=== PATIENT | female | born 1985 | race Caucasian/White ===

== ENCOUNTER 2021-03-07 09:23 | Emergency (ER) | payer OTHER, SELFPAY ==
--- NOTE | 2021-03-07 09:28 | ED.DENTAL ---
HPI - Dental/Oral General Chief complaint: Dental/Oral Stated complaint: infected tooth pain Time Seen by Provider: 03/07/21 09:28 Source: patient and RN notes reviewed History of Present Illness HPI Narrative: Patient is a 35-year-old female who presents the urgent care with complaints of upper right dental pain. Patient states that she has had it for years after cracking off the back of the tooth. Patient states that she was being seen at the dental school but they have been gone and will not return for another 3 weeks. Patient states she does have an appointment on March 20 to get the tooth pulled. Patient states that she has had some leaking fluid from the tooth that has a bad taste . Patient denies of any fevers, chills, nausea, vomiting. Patient states that she has been taking Aleve for the pain. No other acute complaints. No acute distress noted. Patient aware of the plan of care. Some parts of this dictation were generated by voice recognition software and may contain typographical and/or grammatical inaccuracies. Related Data Home Medications Medication Instructions Recorded Confirmed norgestimate-ethinyl estradiol 1 tablet PO DAILY 06/21/19 03/07/21 [Tri-Sprintec (28)] Allergies Allergy/AdvReac Type Severity Reaction Status Date / Time No Known Allergies Allergy Unverified 06/21/19 10:09 Review of Systems Review of Systems: Narrative: CONSTITUTIONAL: Denies fever, chills, or sweats. EYES: Denies visual changes, redness, or discharge. ENT: Denies rhinorrhea, congestion, sore throat, or otalgia. Reports of upper right dental pain CARDIOVASCULAR: Denies chest pain, palpitations, or edema. RESPIRATORY: Denies cough or dyspnea. GASTROINTESTINAL: Denies abdominal pain, nausea, vomiting, or diarrhea. GENITOURINARY: Denies dysuria or hematuria. SKIN: Denies rash or itching. MUSCULOSKELETAL: Denies back pain, joint pain, or myalgia. NEUROLOGIC: Denies headache, numbness, or weakness. All other systems reviewed are negative, except as documented in HPI. FORMERLY [facility], LATER [facility] Social History Social History Gender identity (if verbalized by the patient): Female Comments At the time of my signature, I reviewed and agree with the nursing past medical, surgical, social, and family history. There is no relevant family history pertinent to the patient complaint. Exam Narrative: Exam Narrative: GENERAL: This is a well-nourished, well-developed patient, in no apparent distress. HEAD: normocephalic, atraumatic. EYES: PERRL. Sclera clear/white. Vision is grossly intact. EARS: External ears normal, auditory canals clear and without drainage, TMs normal without perforation. Hearing grossly intact. NOSE: External nose normal with no obvious nasal discharge, nares without redness, no rhinorrhea. THROAT: Mucous membranes moist, posterior pharynx clear. DENTAL: Posterior cusp of tooth #2, upper right second molar, avulsed with the drainage. No surrounding erythema or edema NECK: Neck supple, non-tender without lymphadenopathy CARDIOVASCULAR: Regular rate and rhythm without murmurs, gallops, or rubs. RESPIRATORY: Clear to auscultation. Breath sounds equal bilaterally. No wheezes, rales, or rhonchi. SKIN: warm, intact with no suspicious lesions or rash, good texture and turgor. NEURO: awake, alert, and oriented to person, place and time. There were no obvious focal neurologic abnormalities. EXTREMITIES: No clubbing, cyanosis, or edema. Course Vital Signs Vital signs: Vital Signs Temperature 100.1 F H 03/07/21 09:38 Pulse Rate 81 03/07/21 09:38 Respiratory Rate 18 03/07/21 09:38 Blood Pressure 119/71 03/07/21 09:38 Pulse Oximetry 99 03/07/21 09:38 Temperature 100.1 F H 03/07/21 09:38 Pulse Rate 81 03/07/21 09:38 Respiratory Rate 18 03/07/21 09:38 Blood Pressure 119/71 03/07/21 09:38 Pulse Oximetry 99 03/07/21 09:38 Reviewed MDM - Dental/Ora
[2021-03-07 09:38] VITALS: BP 119/71; PULSE 81; RESP 18; TEMP 37.8; O2SAT 99
== END 2021-03-07 09:48 | disposition home or self-care (01) ==
PROVIDERS: Emergency Provider Nurse Practitioner Family; PCP Physician Assistant
DX: K02.9 Dental caries, unspecified (principal)
CPT/HCPCS: 99213; G0463

== ENCOUNTER 2022-04-24 08:59 | Emergency (ER) | payer OTHER, SELFPAY ==
[2022-04-24 09:04] VITALS: BP 111/69; PULSE 66; RESP 20; TEMP 36.9; O2SAT 99
--- NOTE | 2022-04-24 09:18 | ED.EYEPROB ---
HPI - Eye Problem General Chief complaint: Eye Problems Stated complaint: diann eye redness/pain/itchy Time Seen by Provider: 04/24/22 09:18 Source: patient and RN notes reviewed Mode of arrival: ambulatory Limitations: no limitations History of Present Illness HPI Narrative: 36-year-old female presented for 2 complaints. Endorses bilateral eye itching, burning, and drainage/crusting for the last 2 days and mild swelling this morning. Reports has been treated for pink eye. She does not wear contact lenses. Also reports large amounts of clear/yellow thin watery vaginal discharge for 1 week. Associated with vaginal itching and burning. Denies significant odor. She took OTC monistat-1 without significant change. LMP 2 weeks ago. Started new oral BCP. Also reports treatment for uti one month ago, stating she took abx for about 10 days then was told to increase the dose for an additional 10 days. Denies abdominal pain, dysuria, hematuria, flank pain, n/v/d/f/c. Related Data Home Medications Medication Instructions Recorded Confirmed norgestimate-ethinyl estradiol 1 tablet PO DAILY 06/21/19 04/24/22 0.18 mg/0.215mg/0.25mg-35 mcg(28)tablet (Tri-Sprintec (28)) Allergies Allergy/AdvReac Type Severity Reaction Status Date / Time No Known Allergies Allergy Unverified 04/24/22 09:24 Review of Systems Review of Systems: CONSTITUTIONAL: Denies body aches, fever, chills, or sweats. ENT: Reports eye itching and drainage CARDIOVASCULAR: Denies chest pain, palpitations, or edema. RESPIRATORY: Denies cough or dyspnea. GASTROINTESTINAL: Denies abdominal pain, nausea, vomiting, or diarrhea. GENITOURINARY: Reports vaginal discharge denies dysuria, frequency, urgency, hematuria, flank pain SKIN: Denies rash, itching, or wounds. MUSCULOSKELETAL: Denies back pain or myalgia. FORMERLY [facility] Social History Social History Gender identity (if verbalized by the patient): Female Comments At time of signature, I have reviewed and agree with nursing past medical, surgical, social and family history unless otherwise noted. Please see nursing chart for further information. There is no relevant family history pertinent to the presenting complaint Exam Narrative: GENERAL: Well-appearing and in no acute distress. EYES: EOMI. mild erythema to lower lids, no conjunctival injection mild yellow crusting ENT: Mucous membranes pink and moist. CHEST: No respiratory distress. Clear to auscultation. HEART: Regular rate and rhythm. ABDOMEN: Soft, nontender, nondistended, normal active bowel sounds. No CVA tenderness SKIN: Warm, dry, no rash. NEURO: Alert and oriented x3. Gait steady. Course Course Emergency Course: Patient is aware of diagnosis, understands and agrees to treatment plan. Anticipatory guidance given. Patient agrees to follow-up as directed and is aware of reasons to seek care at the emergency department. Portions of this record may have been created with voice recognition software Level of Care: Express Care Visit Vital Signs Vital signs: Vital Signs Temperature 98.4 F 04/24/22 09:04 Pulse Rate 66 04/24/22 09:04 Respiratory Rate 20 04/24/22 09:04 Blood Pressure 111/69 04/24/22 09:04 Pulse Oximetry 99 04/24/22 09:04 Oxygen Delivery Room Air 04/24/22 09:04 Temperature 98.4 F 04/24/22 09:04 Pulse Rate 66 04/24/22 09:04 Respiratory Rate 20 04/24/22 09:04 Blood Pressure 111/69 04/24/22 09:04 Pulse Oximetry 99 04/24/22 09:04 Oxygen Delivery Room Air 04/24/22 09:04 Reviewed MDM - Eye Problem MDM Narrative Medical decision making narrative: UA negative and preg neg, reviewed with pt. Declined pelvic exam. Will treat for bacterial conjunctivitis as well as BV based on symptoms and possible yeast infection given the recent abx use. Advised supportive measures and signs/symptoms to go to the ER. Pt is appropriate for outpt tr
== END 2022-04-24 10:02 | disposition home or self-care (01) ==
PROVIDERS: Emergency Provider Nurse Practitioner Family; PCP Physician Assistant
DX: H10.9 Unspecified conjunctivitis (principal); N76.0 Acute vaginitis
CPT/HCPCS: 81003; 81025; 99213; G0463

== ENCOUNTER 2022-05-25 14:32 | Emergency (ER) | payer OTHER, SELFPAY ==
[2022-05-25 14:36] VITALS: BP 129/72; PULSE 98; RESP 14; TEMP 37.3; O2SAT 98
--- NOTE | 2022-05-25 14:43 | ED.FEMALEGU ---
HPI - Female Genitourinary General Chief complaint: Urogenital-Female Stated complaint: Poss yeast infection Time Seen by Provider: 05/25/22 14:43 Source: patient and RN notes reviewed History of Present Illness HPI Narrative: Patient is a 36-year-old female who presents the urgent care with complaints of vaginal discharge. States that its yellow and odorous. Patient was treated here for BV and a yeast infection on April 24. Patient refused a pelvic exam at that time and has not followed up with her [employer]. Patient states that there is no chance for STI and has been with her only. Patient states that a couple weeks ago she did have intercourse with her and had not showered for a couple days. Patient denies of any urinary symptoms such as burning, frequency or urgency. No other acute complaints. No acute distress noted. Patient aware of the plan of care. Some parts of this dictation were generated by voice recognition software and may contain typographical and/or grammatical inaccuracies. Related Data Home Medications Medication Instructions Recorded Confirmed norgestimate-ethinyl estradiol 1 tablet PO DAILY 06/21/19 05/25/22 0.18 mg/0.215mg/0.25mg-35 mcg(28)tablet (Tri-Sprintec (28)) Allergies Allergy/AdvReac Type Severity Reaction Status Date / Time No Known Allergies Allergy Unverified 05/25/22 14:40 Review of Systems Review of Systems: CONSTITUTIONAL: Denies fever, chills, or sweats. EYES: Denies visual changes, redness, or discharge. ENT: Denies rhinorrhea, congestion, sore throat, or otalgia. CARDIOVASCULAR: Denies chest pain, palpitations, or edema. RESPIRATORY: Denies cough or dyspnea. GASTROINTESTINAL: Denies abdominal pain, nausea, vomiting, or diarrhea. GENITOURINARY: Reports of vaginal discharge and odor with itchy irritation SKIN: Denies rash or itching. MUSCULOSKELETAL: Denies back pain, joint pain, or myalgia. NEUROLOGIC: Denies headache, numbness, or weakness. All other systems reviewed are negative, except as documented in HPI. [facility] Social History Social History Gender identity (if verbalized by the patient): Female Comments At the time of my signature, I reviewed and agree with the nursing past medical, surgical, social, and family history. There is no relevant family history pertinent to the patient complaint. Exam Narrative: GENERAL: This is a well-nourished, well-developed patient, in no apparent distress. HEAD: normocephalic, atraumatic. EYES: PERRL. Sclera clear/white. Vision is grossly intact. EARS: External ears normal NOSE: External nose normal with no obvious nasal discharge, nares without redness, no rhinorrhea. THROAT: Mucous membranes moist NECK: Neck supple SKIN: warm, intact with no suspicious lesions or rash, good texture and turgor. NEURO: awake, alert, and oriented to person, place and time. There were no obvious focal neurologic abnormalities. EXTREMITIES: No clubbing, cyanosis, or edema. BACK: No flank tenderness. Course Course Level of Care: Express Care Visit Vital Signs Vital signs: Vital Signs Temperature 99.1 F 05/25/22 14:36 Pulse Rate 98 05/25/22 14:36 Respiratory Rate 14 05/25/22 14:36 Blood Pressure 129/72 05/25/22 14:36 Pulse Oximetry 98 05/25/22 14:36 Oxygen Delivery Room Air 05/25/22 14:36 Temperature 99.1 F 05/25/22 14:36 Pulse Rate 98 05/25/22 14:36 Respiratory Rate 14 05/25/22 14:36 Blood Pressure 129/72 05/25/22 14:36 Pulse Oximetry 98 05/25/22 14:36 Oxygen Delivery Room Air 05/25/22 14:36 Reviewed MDM - Female Genitourinary MDM Narrative Medical decision making narrative: Spoke to the patient regarding urine analysis. She is aware that urine does appear to have some slight bacteria as well as blood. We will treat for a possible urinary tract infection as well as a yeast infection pre and post antibiotics. We will
== END 2022-05-25 15:25 | disposition home or self-care (01) ==
PROVIDERS: Emergency Provider Nurse Practitioner Family; PCP Physician Assistant
DX: N39.0 Urinary tract infection, site not specified (principal)
CPT/HCPCS: 81003; 87070; 87086; 87491; 87591; 87661; 99214; G0463

== ENCOUNTER 2022-09-24 13:32 | Outpatient (CLI) | payer OTHER, SELFPAY ==
--- NOTE | 2022-09-24 13:49 | ECG_ITS ---
Measurements Intervals [place] Rate: 77 P: -34 FL: 151 QRS: 76 QRSD: 92 T: 59 QT: 400 QTc: 453 Interpretive Statements SINUS RHYTHM NO PREVIOUS ECG AVAILABLE FOR COMPARISON Electronically Signed On 09-24-2022 15:49:56 PATIENT ACCOUNT LIAISON by Ricardo Montgomery M.D.
== END 2022-09-24 13:33 | disposition home or self-care (01) ==
LOC: ANHLAB 13:35
PROVIDERS: PCP Physician Assistant; Visit Provider Anesthesiology
DX: Z72.0 Tobacco use (principal); Z01.818 Encounter for other preprocedural examination
CPT/HCPCS: 93005

== ENCOUNTER 2022-09-30 01:27 | Day surgery (SDC) | payer OTHER, SELFPAY ==
[2022-09-16 11:13] VITALS: BMI 21.6
--- NOTE | 2022-09-16 11:29 | PC.NURSE ---
Report to the Outpatient Waiting Room, entrance under the green pavilion located off [facility], at time 1130 on date 09/30/22. Planned Procedure Time: 1330. Time changes happen often and if your time is changed the preop area will call you the afternoon before. - You and your visitor will be asked to self-screen and do not enter if you have any COVID symptoms. - Only one visitor is requested with a max of two and NO children visitors are allowed at this time. - The patient visitor may be requested to leave or wait in car when not with patient due to distancing restrictions. - A mask is optional within the hospital at this time. Patients may have clear liquids (water, carbonated beverages, clear teas, apple juice) until 3 hours prior to surgery with a maximum of 20 ounces. 1030 - No food from midnight until time of surgery - Infants may have breast milk until 4 hours before surgery, formula 6 hours prior to surgery. - Children will be allowed to drink immediately following surgery. If applicable, please bring a bottle or sippy cup to assist with drinking. Juice, water, soda, and popsicles are readily available. For infants on formula, please bring formula the day of surgery. Pacifiers are allowed. Take the following medications with a SIP of water the morning of surgery: N/A DO NOT STOP ANY OF YOUR OTHER PRESCRIPTION MEDICATIONS PRIOR TO SURGERY ?EXCEPT THE FOLLOWING Medications to discontinue per physician N/A Date to take last dose N/A Please no make-up, nail samoan, hairspray, perfume, deodorant, or body powder the day of surgery. No jewelry (including any body piercings) or valuables the day of surgery, leave them at home. Please take a shower or bath the night before, or the morning of, surgery with an antibacterial soap. Wear comfortable, loose fitting clothing. Children are encouraged to wear pajamas. - Jewelry must be removed prior to entering the operating room. Rings and piercings that are not removed may be cut off. - The hospital will not accept responsibility for valuables. - Please leave all valuables, including medications, at home the day of surgery. If you are going home after surgery, a licensed local bulk driver must drive you home. - NO public transportation without another adult if you receive anesthesia. - We recommend that an adult stay with you for 24 hours following discharge. - We also recommend that you do not drive, make important decision, drink alcoholic beverages, or take any drugs that were not prescribed by your health care provider for at least 24 hours after your discharge time. For Pediatric surgeries, we recommend two adults accompany the child home. Follow any additional instructions given to you from your surgeon. If you or anyone in your household have experienced Covid symptoms in the past week, please notify your surgeon or the nurse liaison at the phone number below for possible testing. Telephone instructions given to Mayelin Del Angel and asked if any additional questions and then verbalized understanding. Patient advised to call surgeon office or pre surgery nurse liaison [phone] if any additional questions.
[2022-09-30] VITALS (7 sets, daily range): BP systolic 106–135; BP diastolic 56–90; PULSE 48–83; RESP 10–16; TEMP 36.2–37; O2SAT 100; BMI 21.5
[2022-09-30] MEDS: LACTATED RINGERS 1,000 ML 30 ML IV CONT (11:10)
[2022-09-30] MEDS: ACETAMINOPHEN 500 MG TABLET 1000 MG PO (11:22)
[2022-09-30] MEDS: KETOROLAC 15 MG/ML VIAL (*BKC) IV PUSH (11:22)
--- NOTE | 2022-09-30 11:51 | P.PNAN_ITS ---
Anes - Initial Pre Proc Eval Procedure: Operation Date: 09/30/22 12:30 Proposed Procedures p Laparoscopic Bilateral Salpingectomy - Melodie Guzman MD Date/Time: 09/30/22 11:51 Surgeon: Melodie Guzman MD Pre Op Diagnosis: sterilization Patient Data Age: 36 Gender: F Height: 1.65 m Weight: 59 kg Allergies Allergy/AdvReac Type Severity Reaction Status Date / Time No Known Allergies Allergy Verified 09/16/22 11:12 Patient hx anesthesia problems: none Family hx anesthesia problems: none Results Review: All pre-operative results and documents have been reviewed as part of the pre- operative evaluation. [facility] Surgical History Surgical History History of appendectomy Social History Social History Smoking packs per day: 1 Smoking cigarettes per day: 20.0 Years smoked: 20 Smoking pack-years: 20.00 Smoking status: Former smoker Tobacco type: cigarettes Living arrangements: with family Gender identity (if verbalized by the patient): Female Spiritual care concerns: No Anes - Eval Final PreProcedure Day of Procedure 09/30/22 11:51 Patient weight: normal Heart: regular rate and rhythm Lungs: clear to auscultation Airway: Mallampati scale class II Neurological: alert and oriented Last oral intake: >/= 8 hours ASA classification: II Emergent: no Anesthetic plan: proceed Anesthesia type and monitoring: general ETT and standard monitoring Results Review: All pre-operative results and documents have been reviewed as part of the pre- operative evaluation. Informed Consent: The patient's anesthetic plan and its attendant risks and benefits were discussed with the patient/family/POA. Questions were solicited and answers provided to the satisfaction of the patient/family/POA.
--- NOTE | 2022-09-30 12:06 | WPDHPUPDATE1 ---
History and Physical Update Update Date/Time: 09/30/22 12:06 History and Physical has been reviewed, including an updated exam of the patient. There are NO changes in the patient's condition. Risks, benefits, and alternatives have been discussed and questions answered. Patient agrees to proceed with procedure.
--- NOTE | 2022-09-30 13:00 | W.PM.PROC2 ---
Procedure Note - Detailed Date of Procedure 09/30/22 Pre-op Diagnosis sterilization Post-op Diagnosis Same Procedure Performed Laparoscopic bilateral salpingectomy Surgeon Melodie Guzman MD Anesthesia General Indications Unwanted fertility Findings Normal pelvic anatomy Description of Procedure The patient was taken the operating room. She was prepped and draped in the dorsal lithotomy position after induction of general anesthesia. A 5 mm skin incision was made in the left upper quadrant of the abdominal skin. A 5 mm trocar was inserted the intra-abdominal cavity under direct visualization of the scope. Pneumoperitoneum was achieved. A 5 mm trocar was inserted in the left lower quadrant identical fashion. A 5 mm infraumbilical trocar was inserted in identical fashion as well. The bilateral fallopian tubes were removed. This was done by using a LigaSure cautery. The mesosalpinx adjacent to the tube was cauterized transected with LigaSure. This was initiated in the area the ovary and in a stepwise fashion moved medially to the area of the cornu of the uterus. Once there the fallopian tube was cauterized and transected. This was done in identical fashion on each side. The fallopian tubes were taken out through the left lower quadrant trocar site. The pneumoperitoneum was reduced. The trocars removed. The skin was closed with subcuticular 4 Monocryl and covered with Dermabond. She was taken to cover stable condition. Sponge lap and needle counts were correct x2. Estimated Blood Loss 5 Drains No Packing No Pathology Yes Complications No immediate complications Condition Stable Disposition PACU
== END 2022-09-30 15:05 | disposition home or self-care (01) ==
PROVIDERS: PCP Physician Assistant; Visit Provider Obstetrics & Gynecology
PROC: (CPT 49320; principal; 2022-09-30 12:30)
DX: Z30.2 Encounter for sterilization (principal); Z87.891 Personal history of nicotine dependence
CPT/HCPCS: 58661; 88302; A9270; J1100; J1885; J2250; J2405; J2704; J2710; J3010; J7120